=== PATIENT | female | born 1970 | race African-American/Black ===

== ENCOUNTER 2017-09-22 15:58 | Emergency (ER) | payer MEDICAID, OTHER ==
[~2017-09-22] VITALS: Ht 157.5 cm; Wt 73.0 kg
[2017-09-22 16:43] LABS: EOSINOPHILS % 2.8 % (0.0-5.0); HEMATOCRIT. 35.3 % (36.0-48.0); LYMPHOCYTES % 38.6 % (20.0-50.0); MEAN CORPUSCULAR HEMOGLOBIN 29.7 pg (28.0-32.0); MEAN CORPUSCULAR VOLUME 87.4 fL (81.0-99.0); MEAN PLATELET VOLUME 7.9 fl (7.4-10.4); NEUTROPHILS % 48.6 % (40.0-76.0); PLATELET 362 x1000/uL (130-400); RED BLOOD CELL COUNT 4.04 mill/uL (4.2-5.4)
[2017-09-22 16:45] LABS: CHLORIDE 106 mEq/L (98-107)
[2017-09-22 16:48] LABS: PROTHROMBIN TIME 10.3 sec (9.4-11.6)
[2017-09-22 16:58] LABS: HCG SCREEN NEGATIVE
[2017-09-22 17:35] LABS: CLARITY URINE CLEAR (CLEAR); COLOR URINE YELLOW (YELLOW); KETONES URINE NEGATIVE (NEGATIVE); LEUKOCYTE ESTERASE URINE NEGATIVE (NEGATIVE); NITRITE URINE NEGATIVE (NEGATIVE); OCCULT BLOOD URINE 2+ (NEGATIVE); PH URINE 5.5 (4.5-8.0); PROTEIN URINE NEGATIVE (NEGATIVE); SPECIFIC GRAVITY URINE 1.015 (1.005-1.030); UROBILINOGEN URINE 0.2 E.U./dL (0.2-1.0)
[2017-09-22] MEDS ORDERED: CEFTRIAXONE SODIUM 250 MG/VIAL IM ONE (18:15)
[2017-09-22] MEDS ORDERED: ONDANSETRON HCL 4MG TABLET PO ONE (18:15)
[2017-09-22] MEDS ORDERED: AZITHROMYCIN 500 MG TABLET PO ONE (18:15)
[2017-09-22 19:20] VITALS: BP 117/75
== END 2017-09-22 19:40 | disposition home or self-care (01) ==
LOC: ER 18:16
DX: N89.8 Other specified noninflammatory disorders of vagina (principal); R10.30 Lower abdominal pain, unspecified; F17.200 Nicotine dependence, unspecified, uncomplicated
CPT/HCPCS: 36415; 76830; 76856; 80053; 81003; 83690; 84703; 85025; 85610; 87210; 87591; 96372; 99285; J0696; Q0162

== ENCOUNTER 2024-02-15 23:28 | Emergency (ER) | payer OTHER ==
[~2024-02-15] VITALS: Ht 157.5 cm; Wt 63.0 kg
[2024-02-15 23:31] VITALS: TEMP 37.00296
[2024-02-15 23:32] VITALS: TEMP 98.2
[2024-02-15] MEDS: IPRATROPIUM/ALBUTEROL 0.5-3(2.5)MG/3ML NEB HHN ONE (23:57)
[2024-02-15 23:58] VITALS: PULSE 97; RESP 18; O2SAT 99
[2024-02-15 23:58] LABS: BASOPHILS % 1.1 % (0.0-2.0); HEMATOCRIT. 33.6 % (36.0-48.0); HEMOGLOBIN. 11.2 g/dL (12.0-16.0); MEAN CORPUSCULAR HEMOGLOBIN 30.1 pg (28.0-32.0); MEAN CORPUSCULAR HGB CONC 33.2 g/dL (31.0-37.0); MEAN CORPUSCULAR VOLUME 90.4 fL (81.0-99.0); MEAN PLATELET VOLUME 7.9 fl (7.4-10.4); MONOCYTES % 9.6 % (2.0-8.0); NEUTROPHILS % 47.3 % (40.0-76.0); PLATELET 316 x1000/uL (130-400); RED BLOOD CELL COUNT 3.71 mill/uL (4.2-5.4); RED CELL DISTRIBUTION WIDTH 13.6 % (11.6-14.6)
[2024-02-16 00:04] LABS: CARBON DIOXIDE 27 mEq/L (21-32); CHLORIDE 109 mEq/L (98-107); POTASSIUM 3.9 mEq/L (3.5-5.1); SODIUM 141 mEq/L (136-145)
[2024-02-16 00:05] LABS: CALCIUM 9.2 mg/dL (8.7-10.4)
[2024-02-16 00:10] LABS: CREATININE 0.9 mg/dL (0.6-1.0); D-DIMER 0.85 mg/L FEU (<0.50); GLUCOSE 97 mg/dL (70-105); INR 0.9; PARTIAL THROMBOPLASTIN TIME 23.9 sec (23.4-31.0); PROTHROMBIN TIME 10.2 sec (9.6-11.0); UREA NITROGEN BLOOD 20 mg/dL (9-23)
[2024-02-16 00:11] LABS: BG BASE EXCESS 1.7 mmol/L (-2.0-3.0); BG CARBOXYHEMOGLOBIN 4.1 % (0.5-1.5); BG DEOXYHEMOGLOBIN 19.8 % (0.0-5.0); BG FRACTION INSPIRED OXYGEN 28; BG HCO3 ACT 26.6 mmol/L (21.0-28.0); BG OXYGEN SATURATION 79.4 % (94.0-98.0); BG OXYHEMOGLOBIN 76.1 % (94.0-98.0); BG PCO2 43.4 mmHg (32.0-45.0); BG PH 7.406 (7.350-7.450); BG PO2 43.4 mmHg (83.0-108.0); BG SAMPLE SITE RIGHT RADIAL; BG TOTAL HEMOGLOBIN 11.7 g/dL (12.0-16.0); BG VENT MODE NASAL CANNULA
[2024-02-16 00:11] LABS: HCG SCREEN NEGATIVE
[2024-02-16 00:12] LABS: TROPONIN I HIGH SENSITIVITY 7 ng/L (3.0-34)
[2024-02-16 02:00] LABS: TROPONIN I HIGH SENSITIVITY 8 ng/L (3.0-34)
[2024-02-16] MEDS: FUROSEMIDE 20MG/2ML VIAL IVP ONE (03:07)
[2024-02-16] MEDS: ENOXAPARIN 80MG/0.8ML SYR SUBCUT NR (03:09)
[2024-02-16 05:00] VITALS: BP 127/91; PULSE 88; RESP 18; O2SAT 94
[2024-02-16] MEDS ORDERED: IOHEXOL-350 100 ML BOTTLE ONE (07:21)
== END 2024-02-16 08:27 | disposition left against medical advice (07) ==
LOC: ER 23:32 → EDBEDREQ 02-16 02:47 → ER 02-16 08:27
DX: I50.9 Heart failure, unspecified (principal); J96.91 Respiratory failure, unspecified with hypoxia; Z20.822 Contact with and (suspected) exposure to COVID-19
CPT/HCPCS: 80048; 84703; 83880; 85025; 85379; 85610; 85730; 84484 ×2; 36415; 71045; 94640; 93005; 99291; 86850; 86900; 86901; 87804 ×2; 71275; 93970; 82805; 82375; 96372; 96374; 87426; 36600; Z7610 ×3; Q9967; J1650; J1940